=== PATIENT | female | born 1995 | race Caucasian/White ===

== ENCOUNTER → 2024-10-06 12:40 | Outpatient (REF) | payer OTHER, SELFPAY | LOC: HWRAD 12:40 | PROVIDERS: ATTENDING PHYSICIAN Nurse Practitioner Family; FAMILY PHYSICIAN Registered Nurse | DX: E04.2 Nontoxic multinodular goiter (principal) | CPT/HCPCS: 76536 ==

== ENCOUNTER → 2024-12-20 12:51 | Outpatient (REF) | payer OTHER, SELFPAY | LOC: RAD 12:51 | PROVIDERS: ATTENDING PHYSICIAN Registered Nurse | DX: J10.1 Influenza due to other identified influenza virus with other respiratory manifestations (principal); R68.83 Chills (without fever) | CPT/HCPCS: 71046 ==

== ENCOUNTER → 2025-04-26 15:07 | Outpatient (REF) | payer OTHER, SELFPAY | LOC: MRI 3T 15:07 | PROVIDERS: ATTENDING PHYSICIAN Nurse Practitioner Obstetrics & Gynecology; FAMILY PHYSICIAN Registered Nurse | DX: Z91.89 Other specified personal risk factors, not elsewhere classified (principal); Z13.71 Encounter for nonprocreative screening for genetic disease carrier status | CPT/HCPCS: 77049; A9585 ==

== ENCOUNTER 2025-06-29 20:09 | Emergency (ER) | payer OTHER, SELFPAY ==
[2025-06-29 20:23] VITALS: BP 136/86
[2025-06-29 20:39] LABS: Hematocrit 40.0 % (37.0-47.0); Hemoglobin 14.0 g/dL (12.0-16.0); Mean Corp Hgb Conc. 35.0 g/dL (33.0-37.0); Mean Corpuscular Volume 89.1 fL (81.0-99.0); Nucleated Red Blood Cells % 0 %; Platelet Count 357 10^3/uL (130-400); Red Cell Dist. Width 12.0 % (11.5-14.5)
[2025-06-29 20:40] LABS: Urine Character Clear (Clear)
[2025-06-29 20:49] LABS: Urine Squamous Cell >30 /LPF (Few)
[2025-06-29 20:50] LABS: Urine Red Blood Cell 0-2 /HPF (0-2)
[2025-06-29 20:58] LABS: HCG, Serum Qualitative Screen Negative
[2025-06-29 21:07] LABS: ALT (SGPT) 42 U/L (0-35); AST (SGOT) 39 U/L (14-36); Albumin 4.7 g/dl (3.5-5.0); Alkaline Phosphatase 63 U/L (38-126); Blood Urea Nitrogen 7 mg/dl (7-17); Calcium 9.2 mg/dl (8.4-10.2); Carbon Dioxide 27 mmol/L (22-30); Chloride 105 mmol/L (98-107); Glucose 98 mg/dl (70-99); Potassium 4.0 mmol/L (3.5-5.1); Sodium 138 mmol/L (135-145); Total Protein 7.6 g/dl (6.3-8.2); eGFR > 60.00
[2025-06-29 21:09] LABS: Lipase 77 U/L (23-300)
[2025-06-29 23:33] VITALS: BP 130/80
[2025-06-29 23:34] VITALS: BMI 37.0
--- NOTE | 2025-06-29 23:34 | ED.GENMED ---
History of Present Illness
<Charmaine Gomez MD, Resident - Last Filed: 06/30/25 03:47>
General
Chief Complaint: Abdominal Symptoms
Source: patient and family
Exam Limitations: none
Time Seen by Provider: 06/29/25 23:32
History of Present Illness
History of Present Illness:
29-year-old female with a past medical history of IBS, eosinophilic esophagitis, cholecystectomy 2023 comes to ER due to recent lower abdominal pain and watery diarrhea that began around three days ago. Patient was a bit nauseous but has not had
any vomiting. She reports that she has had diffuse lower abdominal/pelvic pain alongside of this watery diarrhea. Says that she started Dupixent for her eosinophilic esophagitis around 6 weeks ago. Has not had anything to eat other than some
toast and slim olamide for the past few days due to her nausea. States that she has not had anything out of the ordinary for food and has not been around any sick contacts that she knows of. She sees GI at [facility] and had a recent endoscopy in
February and is scheduled for another one in July for her eosinophilic esophagitis. She did a test at home which was negative, and said that she had a mild low-grade fever of 99F today. She took a Bentyl pill today which has helped
control her symptoms. She went to urgent care earlier who did testing and told her to come to the ER for further imaging. She does not report any dysuria but does have some increased frequency of urination.
Past History
<Charmaine Gomez MD, Resident - Last Filed: 06/30/25 03:47>
Past History
ED Past Medical History: Other (Preeclampsia)
ED Past Surgical History: Cholecystectomy (2023) and Other (Tonsils and wisdom teeth)
Social History
Tobacco: Non-smoker
Alcohol: Occasional
Drug: None
Employment: Employed
Review of Systems
<Charmaine Gomez MD, Resident - Last Filed: 06/30/25 03:47>
Review of Systems
Allergies reviewed?: Yes
Constitutional: Denies fever or chills
EENT: Reports no symptoms
Respiratory: Reports no symptoms
Cardiac: Reports no symptoms
ABD/GI: Reports abdominal pain, nausea and diarrhea; Denies vomiting
: Reports frequency
Musculoskeletal: Reports no symptoms
Skin: Reports no symptoms
Neurological: Reports no symptoms
Endocrine: Reports no symptoms
Hematologic/Lymphatic: Reports no symptoms
Psychiatric: Reports no symptoms
Phy Exam
<Charmaine Gomez MD, Resident - Last Filed: 06/30/25 03:47>
General Physical Exam
General Presentation: well appearing and no apparent distress
General Skin: warm and dry
General Mental: alert
General Hydration: appears well hydrated
Cardiovascular Exam
Cardiovascular Exam: regular rate/rhythm, no edema and no murmur
Pulmonary Exam
Pulmonary Exam: lungs clear, no respiratory distress, no rales, no crackles and no wheezing
Gastrointestinal Exam
Gastrointestinal Exam: normal bowel sounds, soft, non distended and tender
Palpation: generalized: Mild tenderness
Course
<Charmaine Gomez MD, Resident - Last Filed: 06/30/25 03:47>
Orders/Labs/Results
Orders:
Orders
06/29/25 20:28
Test Result ONCE
06/29/25 20:32
Complete Blood Count/With Diff Urgent
Comprehensive Metabolic Panel Urgent
HCG, Serum Qualitative Screen Urgent
Comment: Notify provider if positive test present
Lipase Urgent
Urinalysis Reflex To Culture Urgent
Date Specimen was Collected: 06/29/25
Time Specimen was Collected: 20:28
Urine Microscopic Reflex Cult Urgent
Urine Culture Urgent
CLIVE Source: U
Specimen Description:
Date Specimen was Collected: 06/29/25
Time Specimen was Collected: 20:28
06/30/25 00:17
CT Abd/pelvis W Iv Cont Urgent
Comment:
Reason For Exam: Diffuse lower abdominal pain
0.9% Sodium Chloride 1000 ml [Nss] 1,000 ml IV BOLUS
Abnormal Lab Results
06/29/25
20:32
MCH 31.2 H pg
(27.0-31.0)
Monocytes % 11.6 H %
(1.7-9.3)
AST 39 H U/L
(14-36)
ALT 42 H U/L
(0-35)
Leukocyte Esterase Rfl 2+ A
(Negative)
Urine WBC (Reflex) 11-15 A /HPF
(0-5)
Urine Bacteria (Reflex) Few A
(Negative)
Urine Albumin (Reflex) 1+ A
(Neg - Trace)
06/29/25 20:32
06/29/25 20:32
Vital Signs
Initial and Last Documented VS:
Initial Vital Signs
Temp Pulse Resp BP Pulse Ox
98.4 F 75 18 136/86 99
06/29/25 20:23 06/29/25 20:23 06/29/25 20:23 06/29/25 20:23 06/29/25 20:23
Last Documented Vital Signs
Temp Pulse Resp BP Pulse Ox
98.4 F 75 18 116/78 97
06/29/25 20:23 06/29/25 20:23 06/29/25 20:23 06/30/25 01:00 06/30/25 03:15
<Rylie Retana DO - Last Filed: 06/30/25 02:53>
Orders/Labs/Results
Orders:
Orders
06/29/25 20:28
Test Result ONCE
06/29/25 20:32
Complete Blood Count/With Diff Urgent
Comprehensive Metabolic Panel Urgent
HCG, Serum Qualitative Screen Urgent
Comment: Notify provider if positive test present
Lipase Urgent
Urinalysis Reflex To Culture Urgent
Date Specimen was Collected: 06/29/25
Time Specimen was Collected: 20:28
Urine Microscopic Reflex Cult Urgent
Urine Culture Urgent
CLIVE Source: U
Specimen Description:
Date Specimen was Collected: 06/29/25
Time Specimen was Collected: 20:28
06/30/25 00:17
CT Abd/pelvis W Iv Cont Urgent
Comment:
Reason For Exam: Diffuse lower abdominal pain
0.9% Sodium Chloride 1000 ml [Nss] 1,000 ml IV BOLUS
Abnormal Lab Results
06/29/25
20:32
MCH 31.2 H pg
(27.0-31.0)
Monocytes % 11.6 H %
(1.7-9.3)
AST 39 H U/L
(14-36)
ALT 42 H U/L
(0-35)
Leukocyte Esterase Rfl 2+ A
(Negative)
Urine WBC (Reflex) 11-15 A /HPF
(0-5)
Urine Bacteria (Reflex) Few A
(Negative)
Urine Albumin (Reflex) 1+ A
(Neg - Trace)
06/29/25 20:32
06/29/25 20:32
Vital Signs
Initial and Last Documented VS:
Initial Vital Signs
Temp Pulse Resp BP Pulse Ox
98.4 F 75 18 136/86 99
06/29/25 20:23 06/29/25 20:23 06/29/25 20:23 06/29/25 20:23 06/29/25 20:23
Last Documented Vital Signs
Temp Pulse Resp BP Pulse Ox
98.4 F 75 18 116/78 97
06/29/25 20:23 06/29/25 20:23 06/29/25 20:23 06/30/25 01:00 06/30/25 03:15
<Charmaine Gomez MD, Resident - Last Filed: 06/30/25 03:47>
MDM/Problems Addressed
Differential Diagnosis Includes:
IBS, Drug side effects (Dupixent), Gastroenteritis,
MDM/Problems Addressed:
CBC, CMP, test, Lipase, Urinalysis ordered. Urine culture ordered. Looking for any acute gastroenteritis or urinary infection.
Patient not febrile, not tachycardic/tachypneic. Does not look too dehydrated or in too much discomfort.
CBC shows no abnormalities
CMP shows mild transaminitis
Lipase levels normal
Less likely to be infectious cause in nature at this time
test negative
Will order CT Abd/Pel with IV contrast and give supportive therapy with IVF
Preliminary CT Abd/Pel shows prominent mesenteric lymph nodes which may be seen with viral syndrome/mesenteric adenitis
Counseled patient that she most likely has a viral gastroentritis which should resolve with just supportive therapy
Will discharge patient with instructions to use NSAIDs as needed for the pain
If these symptoms persist for more than 2 weeks, may also have to consider these are side effects from her current medications or from her IBS
<Charmaine Gomez MD, Resident - Last Filed: 06/30/25 03:47>
*Pulse Oximetry
SaO2: 99
Oxygen Mode of Delivery: Room air
Patient hypoxic: no
*Sheet Combining Operator Interpretation
Rate: normal
Interpretation: normal
Rhythm: sinus
*Critical Care Note
Total Time (30-74mins, 75-104mins- exclusive of procedures): Not Applicable
ED Attending Note
<Charmaine Gomez MD, Resident - Last Filed: 06/30/25 03:47>
-
Portions of this chart may have been created with voice recognition software.� Occasional wrong word or��sound alike� substitutions may have occurred due to the inherent limitations of voice recognition software.
<Rylie Retana, - Last Filed: 06/30/25 02:53>
ED Attending Note
Patient seen and examined by attending physician: Yes
I performed the substantive portion of visit, reviewed & personally made and approve the management plan that is documented in note by myself or YONI.: Yes
I performed a history and physical exam of patient and discussed management with resident, I reviewed resident's note and agree with documented findings and plan of care.: Yes
ED Attending Note:
29-year-old female with history of IBS and eosinophilic esophagitis on Dupixent presenting to the emergency department for lower abdominal discomfort and diarrhea. Reports symptoms for the past 3 days. Reports nausea without vomiting. Denies any
known sick contacts. Has been taking some Bentyl for her symptoms. 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 difficile. Denies any fever. Denies chest pain or difficulty breathing. Port surgical
history of cholecystectomy. Vital signs on arrival are normal.
On exam, patient resting comfortably, nontoxic. Overall benign abdominal exam, generalized nonfocal tenderness to lower abdomen without rebound or guarding. Suspect that patient's symptoms could be secondary to enteritis versus IBS. Patient
reports that she went to urgent care earlier today, had unremarkable laboratory analysis, however felt that her symptoms were worsening which prompted her to come to the hospital. For this reason we will obtain CT abdominal imaging to rule out
acute intra-abdominal process. Will start patient IV fluids.
02:50 -CT consistent with a mesenteric adenitis. Patient otherwise remained stable. Feel stable for discharge with outpatient supportive therapy, advised NSAIDs. Return precautions discussed and patient verbalized understanding
Discharge Plan
Departure
Patient Disposition: Home (Routine Discharge)
Date of Disposition: 06/30/25
Time of Disposition: 02:58
Patient with high blood pressure during this ER visit?: Yes
Condition: Good
Discharge Problem:
Viral gastroenteritis
Instructions: Nausea and Vomiting, Adult (DC), BLOOD PRESSURE
Prescriptions:
No Action
famotidine 20 mg Tablet,Chewable
20 mg PO DAILYPRN PRN (Reason: HEARTBURN)
cetirizine [Zyrtec] 10 mg Tablet
10 mg PO DAILY
prenat.vits,kevin,lpg-ouez-[id number] Tablet
1 tab PO DAILY
hydrocodone-acetaminophen 5-300 mg Tablet
1 tab PO .Q4-6HPRN PRN (Reason: pain)
acetaminophen 500 mg Tablet
1,000 mg PO Q6H PRN (Reason: PAIN)
ibuprofen [Advil] 200 mg Tablet
800 mg PO Q6H PRN (Reason: PAIN)
amoxicillin-pot clavulanate 875-125 mg tablet
1 tab PO Q12H Qty: 24 0RF
Referrals:
Deo Llanes CRNP [Family Provider, Internal Medicine]
Activity Restrictions/Additional Instructions:
Discussed with patient that she can use NSAIDs to help manage her abdominal pain symptoms
If her symptoms continue to persist for more than 2 weeks, may have to consider that it is a side effect of Dupixent or due to her IBS
Interventions
Interventions:
*Risk Screen - Suicide Last Done: 06/29/25 20:23
*General Assessment Last Done: 06/29/25 20:23
*Neglect/Abuse Screening Last Done: 06/29/25 20:23
*ED- Fall Risk Assessment Last Done: 06/29/25 23:34
*ED COVID-19 Vaccine History Last Done: 06/29/25 23:34
DL-Wvukts-Nztsukhzxj Assessment Last Done: 06/29/25 23:34
Discharge Date and Time
Print Language: YORUBA
[2025-06-30] VITALS: BP 118/83
[2025-06-30] MEDS: NSS 1000 IV (00:55)
[2025-06-30 01:00] VITALS: BP 116/78
== END 2025-06-30 03:31 | disposition home or self-care (01) ==
LOC: EMR 20:09
PROVIDERS: Emergency Medicine; EMERGENCY PHYSICIAN Student in an Organized Health Care Education/Training Program; FAMILY PHYSICIAN Registered Nurse
DX: R10.30 Lower abdominal pain, unspecified (principal); R19.7 Diarrhea, unspecified; R11.0 Nausea; R35.0 Frequency of micturition; A08.4 Viral intestinal infection, unspecified; I88.0 Nonspecific mesenteric lymphadenitis; R10.2 Pelvic and perineal pain; K20.0 Eosinophilic esophagitis; K58.9 Irritable bowel syndrome, unspecified; Z90.49 Acquired absence of other specified parts of digestive tract; R03.0 Elevated blood-pressure reading, without diagnosis of hypertension
CPT/HCPCS: 99284; 96360; 74177; 80053; 81003; 81015; 83690; 84703; 85025; 87086; Q9967

== ENCOUNTER → 2025-10-05 11:32 | Outpatient (REF) | payer OTHER, SELFPAY | LOC: HWRAD 11:32 | PROVIDERS: ATTENDING PHYSICIAN Nurse Practitioner Family; FAMILY PHYSICIAN Registered Nurse | DX: E04.2 Nontoxic multinodular goiter (principal) | CPT/HCPCS: 76536 ==